=== PATIENT | male | born 1985 | race Caucasian/White ===

== ENCOUNTER → 2017-05-01 | Outpatient (CLI) | payer BC ==
[~2017-05-01] MED LIST: HYDR-3583 PO
--- NOTE | 2017-05-01 16:29 | Diagnostic Imaging Report ---
EXAMINATION: PET-CT TECHNIQUE: Serum glucose level at the time of the study is: 103 mg/dL. 12.5 mCi of FDG was administered intravenously followed by obtaining PET images with corresponding noncontrast CT scan images. The CT scan was performed for anatomic correlation and attenuation correction and was not performed according to the diagnostic protocol of the areas covered. The scan was performed from the entire body. 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 Intraorbital mass. Correlation with the report available from MRI dated 04/06/2017 demonstrates a circumferential thickening around the optic nerve that appears to be arising from the optic sheath which was suspected to be a meningioma according to this report. Lymphoma is in the differential based on the clinical assessment. This involves the intraorbital portion of the right optic nerve. FINDINGS: There is symmetric FDG uptake in the brain. There is somewhat symmetric area of activity that appears to be projecting over the orbits and right ethmoidal air cells inseparable from the undersurface of the brain. Due to the close proximity of the brain intense activity and some misregistration artifact, metabolic activity of the area of thickening around the optic nerve described on previous MRI is not well evaluated. Gross evaluation of the area by the localizer CT scan demonstrates no obvious mass. This is probably secondary to the relatively subtle soft tissue thickening in the region requiring high resolution imaging such as MRI. Such small soft tissue tumor even if it was hypermetabolic, is not expected to be easily seen by PET evaluation. There is a focus of mild hypermetabolism projecting over the retromaxillary fat on the left side of uncertain etiology. There is symmetric and oropharyngeal moderate hypermetabolism, probably physiologic. In the chest, there is no significant hypermetabolic mass identified. In the abdomen and pelvis, there is tracer excretion in the urinary tracts with no suspicious hypermetabolic mass seen. Sigmoid colon mild to moderate nonfocal activity is likely physiologic or inflammatory. In the lower extremities, no suspicious hypermetabolic mass is seen. The spleen measures 12.8 x 5 cm in maximum axial dimension, at the upper limits of normal. IMPRESSION: No hypermetabolic masses identified. The splenic size is at the upper limits of normal. Dictated by: Dictated on workstation # [id number]
== END ==
LOC: RAD 10:41
DX: H05.89 Other disorders of orbit (principal); M79.89 Other specified soft tissue disorders

== ENCOUNTER 2017-05-11 08:37 | Outpatient (RCR) | payer BC | END 2017-08-09 | disposition home or self-care (01) | LOC: ONC 08:37 | PROVIDERS: ATTEND Radiology Radiation Oncology | DX: D33.3 Benign neoplasm of cranial nerves (principal) | CPT/HCPCS: 99214 ==

== ENCOUNTER 2017-09-28 07:59 | Outpatient (RCR) | payer BC ==
[2017-08-14 15:44] LABS: BUN/CREATININE RATIO 19; CREATININE SERUM 0.98 MG/DL (0.60-1.30); GFR ESTIMATED > 60
== END 2017-11-12 | disposition home or self-care (01) ==
LOC: ONC 07:59
PROVIDERS: ATTEND Radiology Radiation Oncology
DX: Z51.0 Encounter for antineoplastic radiation therapy (principal); D33.3 Benign neoplasm of cranial nerves
CPT/HCPCS: 36415; 77300; 77301; 77334; 77336; 77338; 77386; 82565; 84520

== ENCOUNTER 2017-11-13 15:58 | Outpatient (RCR) | payer BC | END 2018-02-11 | disposition home or self-care (01) | LOC: ONC 15:58 | PROVIDERS: ATTEND Radiology Radiation Oncology | DX: D33.3 Benign neoplasm of cranial nerves (principal) | CPT/HCPCS: 99213 ==